=== PATIENT | female | born 1965 | race Caucasian/White ===

== ENCOUNTER 2016-10-21 04:24 | Emergency (ER) | payer MEDICAID ==
[2016-10-21 08:02] VITALS: BP 118/60
== END 2016-10-21 08:02 | disposition home or self-care (01) ==
LOC: ED 04:24
DX: J45.901 Unspecified asthma with (acute) exacerbation (principal); E11.9 Type 2 diabetes mellitus without complications
CPT/HCPCS: J7512; J7613; J7644; Q0092

== ENCOUNTER 2016-11-30 05:44 | Emergency (ER) | payer MEDICAID ==
[2016-11-30 06:25] LABS: BASOPHIL % 0.4 % (0-2); PLATELET COUNT 421 x10^3mcL (130-400)
[2016-11-30 06:38] LABS: CALCIUM 8.6 mg/dL (8.5-10.1); CARBON DIOXIDE 30.1 mmol/L (21-32); CHLORIDE SERUM 104 mmol/L (98-107); CREATININE SERUM 0.7 mg/dL (0.6-1.0); GFR1 > 60 mL/min; GLUCOSE SERUM 120 mg/dL (74-106); POTASSIUM SERUM 3.8 mmol/L (3.5-5.1); SODIUM SERUM 139 mmol/L (136-145)
[2016-11-30 06:42] LABS: ALKALINE PHOSPHATASE 93 U/L (46-116); ALT/SGPT 29 U/L (14-59); AST/SGOT 18 U/L (15-37); BILIRUBIN TOTAL 0.2 mg/dL (0.20-1.00); CHOLESTEROL 153 mg/dL (<200); HDL CHOLESTEROL 47 mg/dL (40-60); TOTAL PROTEIN, SERUM 7.4 g/dL (6.4-8.2)
[2016-11-30 06:45] LABS: ALBUMIN 3.1 g/dL (3.4-5.0)
[2016-11-30 09:42] VITALS: BP 130/84
== END 2016-11-30 09:42 | disposition home or self-care (01) ==
LOC: ED 05:44
PROVIDERS: Emergency Medicine
DX: H10.32 Unspecified acute conjunctivitis, left eye (principal); R07.9 Chest pain, unspecified; F17.200 Nicotine dependence, unspecified, uncomplicated
CPT/HCPCS: 83880; 99406; J2405; J3010; J7030; Q0092

== ENCOUNTER 2016-12-03 18:21 | Inpatient (IN) | payer MEDICAID ==
[~2016-12-03] VITALS: Ht 165.1 cm; Wt 81.3 kg
[2016-12-03 20:38] LABS: BASOPHIL % 0.6 % (0-2); PLATELET COUNT 453 x10^3mcL (130-400); RED CELL DISTRIBUTION WIDTH 16.6 % (11.5-14.5)
[2016-12-03 20:52] LABS: CALCIUM 9.2 mg/dL (8.5-10.1); CARBON DIOXIDE 30.8 mmol/L (21-32); CHLORIDE SERUM 100 mmol/L (98-107); CREATININE SERUM 0.7 mg/dL (0.6-1.0); GFR1 > 60 mL/min; GLUCOSE SERUM 97 mg/dL (74-106); POTASSIUM SERUM 3.6 mmol/L (3.5-5.1); SODIUM SERUM 138 mmol/L (136-145)
[2016-12-03 20:59] LABS: ALBUMIN 3.5 g/dL (3.4-5.0); ALKALINE PHOSPHATASE 97 U/L (46-116); ALT/SGPT 25 U/L (14-59); AST/SGOT 19 U/L (15-37); BILIRUBIN TOTAL 0.24 mg/dL (0.20-1.00); C REACTIVE PROTEIN 0.6 mg/dL (<=0.9); TOTAL PROTEIN, SERUM 8.1 g/dL (6.4-8.2)
[2016-12-03 21:21] LABS: ERYTHROCYTE SED RATE 41 mm/hr (0-20)
[2016-12-03] MEDS ORDERED: ALBUTEROL1.25 MG/3 (22:44)
[2016-12-03] MEDS ORDERED: NORCO1 TA2 (22:44)
[2016-12-03 23:50] VITALS: BP 116/77
[2016-12-04 01:24] LABS: T3 TOTAL 1.25 ng/mL
[2016-12-04 01:26] LABS: FREE T4 0.93 ng/dL (0.76-1.46); FREE THYROXINE INDEX 2.5 ug/dL (1.4-4.5); T4(THYROXINE) 7.7 ug/dL (4.7-13.3)
[2016-12-04 01:30] VITALS: BP 116/77
[2016-12-04 01:38] LABS: CHOLESTEROL/HDL RATIO 3.8
[2016-12-04 06:12] LABS: BASOPHIL % 0.3 % (0-2)
[2016-12-04 06:24] LABS: CALCIUM 8.9 mg/dL (8.5-10.1); CARBON DIOXIDE 24.2 mmol/L (21-32); CHLORIDE SERUM 103 mmol/L (98-107); CREATININE SERUM 0.8 mg/dL (0.6-1.0); GFR1 > 60 mL/min; GLUCOSE SERUM 171 mg/dL (74-106); MAGNESIUM 1.9 mg/dL (1.8-2.4); SODIUM SERUM 138 mmol/L (136-145)
[2016-12-04 06:33] VITALS: BP 105/60
[2016-12-04 06:37] LABS: PLATELET COUNT 447 x10^3mcL (130-400); RED CELL DISTRIBUTION WIDTH 16.1 % (11.5-14.5)
[2016-12-04 10:18] VITALS: BP 116/71
[2016-12-04 14:00] VITALS: BP 115/71
[2016-12-04 17:28] VITALS: BP 118/75
[2016-12-04 21:58] VITALS: BP 100/62
[2016-12-05 06:12] VITALS: BP 92/50
[2016-12-05 10:49] VITALS: BP 1892/54; BP 92/54
[2016-12-05 17:43] VITALS: BP 105/66
[2016-12-05 18:23] LABS: UA SPECIFIC GRAVITY >=1.030 (1.005-1.035); microscopic required? YES; urine erythrocyte NEGATIVE (NEGATIVE)
[2016-12-05 22:02] VITALS: BP 108/60; BP 112/71
[2016-12-05] MEDS ORDERED: GOOD NEIGHBOR P10 M1 PO (22:17)
[2016-12-05] MEDS ORDERED: NAPHCON A OP (22:18)
[2016-12-05] MEDS ORDERED: OCU OU (22:18)
[2016-12-06 06:13] LABS: BASOPHIL % 0.1 % (0-2); PLATELET COUNT 396 x10^3mcL (130-400)
[2016-12-06 06:15] VITALS: BP 115/64
[2016-12-06 06:28] LABS: CALCIUM 8.4 mg/dL (8.5-10.1); CARBON DIOXIDE 23.9 mmol/L (21-32); CHLORIDE SERUM 107 mmol/L (98-107); CREATININE SERUM 0.8 mg/dL (0.6-1.0); GFR1 > 60 mL/min; GLUCOSE SERUM 195 mg/dL (74-106); MAGNESIUM 1.9 mg/dL (1.8-2.4); PHOSPHOROUS 2.5 mg/dL (2.5-4.9); SODIUM SERUM 142 mmol/L (136-145)
[2016-12-06 06:33] LABS: ALBUMIN 2.7 g/dL (3.4-5.0)
[2016-12-06 06:43] LABS: RED CELL DISTRIBUTION WIDTH 16.8 % (11.5-14.5)
[2016-12-06 09:37] VITALS: BP 107/58
[2016-12-06] MEDS ORDERED: PREDNISONE50 MG PO (10:39)
[2016-12-06 11:44] VITALS: BP 107/58
== END 2016-12-06 13:00 | disposition home or self-care (01) | DRG 346 ==
LOC: ED 18:21 → MU 22:01 → DU 22:01 → MU 12-04 22:02
PROVIDERS: Emergency Medicine; ADMIT Family Medicine
DX: M31.6 Other giant cell arteritis (principal); H20.00 Unspecified acute and subacute iridocyclitis; B18.2 Chronic viral hepatitis C; J45.909 Unspecified asthma, uncomplicated; Z68.29 Body mass index [BMI] 29.0-29.9, adult; F17.210 Nicotine dependence, cigarettes, uncomplicated
CPT/HCPCS: 83880; 84439; J1885; J2270; J2930; J7030; J7620

== ENCOUNTER 2017-01-29 13:02 | Emergency (ER) | payer MEDICAID ==
[2017-01-29 13:02] VITALS: BP 136/93
[~2017-01-29 13:02] MED LIST: ALBUTEROL1.25 MG/3; GOOD NEIGHBOR P10 M1 PO; NAPHCON A OP; NORCO1 TA2; OCU OU; PREDNISONE50 MG PO
== END 2017-01-29 15:00 | disposition left against medical advice (07) ==
LOC: ED 13:02
DX: Z53.21 Procedure and treatment not carried out due to patient leaving prior to being seen by health care provider (principal)

== ENCOUNTER 2017-05-16 13:03 | Emergency (ER) | payer MEDICAID ==
[2017-05-16 17:33] VITALS: BP 110/71
== END 2017-05-16 17:34 | disposition home or self-care (01) ==
LOC: ED 13:03
DX: S83.92XA Sprain of unspecified site of left knee, initial encounter (principal); J45.909 Unspecified asthma, uncomplicated; F17.210 Nicotine dependence, cigarettes, uncomplicated; W51.XXXA Accidental striking against or bumped into by another person, initial encounter; Y93.89 Activity, other specified; Y92.89 Other specified places as the place of occurrence of the external cause; Y99.8 Other external cause status
CPT/HCPCS: J1170; J1885; Q0162

== ENCOUNTER 2017-10-09 18:59 | Emergency (ER) | payer MEDICAID ==
[~2017-10-09] VITALS: Ht 162.6 cm; Wt 80.3 kg
[2017-10-09 19:14] VITALS: Ht 162.6 cm; Wt 80.3 kg
[2017-10-09 21:27] LABS: BASOPHIL % 0.4 % (0-2)
[2017-10-09 21:37] LABS: PLATELET COUNT 503 x10^3mcL (130-400); RED CELL DISTRIBUTION WIDTH 20.1 % (11.5-14.5)
[2017-10-09 21:40] LABS: CALCIUM 9.1 mg/dL (8.5-10.1); CARBON DIOXIDE 22.5 mmol/L (21-32); CHLORIDE SERUM 103 mmol/L (98-107); CREATININE SERUM 0.8 mg/dL (0.6-1.0); GFR1 > 60 mL/min; GLUCOSE SERUM 122 mg/dL (74-106); POTASSIUM SERUM 3.9 mmol/L (3.5-5.1); SODIUM SERUM 136 mmol/L (136-145)
[2017-10-09 21:45] LABS: ALBUMIN 3.8 g/dL (3.4-5.0); ALKALINE PHOSPHATASE 90 U/L (46-116); ALT/SGPT 30 U/L (14-59); AST/SGOT 12 U/L (15-37); BILIRUBIN TOTAL 0.3 mg/dL (0.20-1.00); TOTAL PROTEIN, SERUM 7.7 g/dL (6.4-8.2)
[2017-10-09 22:04] LABS: rbc morphology (normal/abnorm) ABNORMAL (NORMAL)
[2017-10-09 22:31] LABS: ERYTHROCYTE SED RATE 14 mm/hr (0-30)
[2017-10-09 22:48] LABS: microscopic required? NO
[2017-10-09 23:14] LABS: urine erythrocyte NEGATIVE (NEGATIVE)
[2017-10-09 23:37] VITALS: BP 119/76
== END 2017-10-09 23:37 | disposition home or self-care (01) ==
LOC: ED 18:59
PROVIDERS: Emergency Medicine
DX: K59.00 Constipation, unspecified (principal); M31.6 Other giant cell arteritis; J45.909 Unspecified asthma, uncomplicated; F43.10 Post-traumatic stress disorder, unspecified; B19.20 Unspecified viral hepatitis C without hepatic coma
CPT/HCPCS: 83880; J1885; J2060; J7030

== ENCOUNTER 2018-03-31 17:25 | Emergency (ER) | payer MEDICAID ==
[~2018-03-31] VITALS: Ht 165.1 cm; Wt 84.8 kg
[2018-03-31 17:41] VITALS: Ht 165.1 cm; Wt 84.8 kg
[2018-03-31 18:47] LABS: PLATELET COUNT 389 x10^3mcL (130-400); RED CELL DISTRIBUTION WIDTH 15.4 % (11.5-14.5)
[2018-03-31 18:54] LABS: CALCIUM 9.4 mg/dL (8.5-10.1); CARBON DIOXIDE 26.7 mmol/L (21-32); CHLORIDE SERUM 101 mmol/L (98-107); CREATININE SERUM 0.7 mg/dL (0.6-1.0); GFR1 > 60 mL/min; GLUCOSE SERUM 115 mg/dL (74-106); POTASSIUM SERUM 3.7 mmol/L (3.5-5.1); SODIUM SERUM 138 mmol/L (136-145)
[2018-03-31 18:59] LABS: ALBUMIN 3.9 g/dL (3.4-5.0); ALKALINE PHOSPHATASE 101 U/L (46-116); ALT/SGPT 28 U/L (14-59); AST/SGOT 25 U/L (15-37); BILIRUBIN TOTAL 0.4 mg/dL (0.20-1.00)
[2018-03-31 20:20] VITALS: BP 133/85
== END 2018-03-31 20:20 | disposition home or self-care (01) ==
LOC: ED 17:25
PROVIDERS: Emergency Medicine
DX: N39.0 Urinary tract infection, site not specified (principal); M79.1 Myalgia; J45.909 Unspecified asthma, uncomplicated; F43.10 Post-traumatic stress disorder, unspecified; F32.9 Major depressive disorder, single episode, unspecified; Z86.19 Personal history of other infectious and parasitic diseases
CPT/HCPCS: J1885; J7030

== ENCOUNTER 2019-08-28 19:13 | Emergency (ER) | payer MEDICAID | END 2019-08-28 21:50 | disposition left against medical advice (07) | LOC: ED 19:13 | DX: Z53.21 Procedure and treatment not carried out due to patient leaving prior to being seen by health care provider (principal) ==

== ENCOUNTER 2019-08-30 20:15 | Emergency (ER) | payer MEDICAID ==
[~2019-08-30] VITALS: Ht 165.1 cm; Wt 85.8 kg
[2019-08-30 20:21] VITALS: Ht 165.1 cm; Wt 85.8 kg
[2019-08-30 22:02] VITALS: BP 116/71
== END 2019-08-30 22:02 | disposition home or self-care (01) ==
LOC: ED 20:15
DX: L02.413 Cutaneous abscess of right upper limb (principal); L03.113 Cellulitis of right upper limb; J45.909 Unspecified asthma, uncomplicated; Z90.89 Acquired absence of other organs
CPT/HCPCS: J0696; J1885; J2001

== ENCOUNTER 2019-12-25 01:42 | Emergency (ER) | payer OTHER, MEDICAID ==
[~2019-12-25] VITALS: Ht 165.1 cm; Wt 86.2 kg
[2019-12-25 01:51] VITALS: Ht 165.1 cm; Wt 86.2 kg
[2019-12-25 04:22] VITALS: BP 127/81
== END 2019-12-25 04:22 | disposition home or self-care (01) ==
LOC: ED 01:42
DX: S06.0X0A Concussion without loss of consciousness, initial encounter (principal); S13.4XXA Sprain of ligaments of cervical spine, initial encounter; S20.219A Contusion of unspecified front wall of thorax, initial encounter; J45.909 Unspecified asthma, uncomplicated; V49.9XXA Car occupant (driver) (passenger) injured in unspecified traffic accident, initial encounter; Y93.I9 Activity, other involving external motion; Y92.413 State road as the place of occurrence of the external cause; Y99.8 Other external cause status
CPT/HCPCS: Q0092